=== PATIENT | female | born 1995 | race Caucasian/White ===

== ENCOUNTER → 2021-09-18 | Day surgery (SDC) | payer OTHER | LOC: CSHSDC/OP 13:46 | PROVIDERS: ATTEND Obstetrics & Gynecology | DX: O36.0190 Maternal care for anti-D [Rh] antibodies, unspecified trimester, not applicable or unspecified (principal) ==

== ENCOUNTER 2021-11-05 13:52 | Outpatient (CLI) | payer OTHER | END 2021-11-05 13:53 | disposition home or self-care (01) | LOC: CSHLAB 13:52 | PROVIDERS: ATTEND Obstetrics & Gynecology | DX: Z20.822 Contact with and (suspected) exposure to COVID-19 (principal) | CPT/HCPCS: 87811 ==

== ENCOUNTER 2021-11-07 05:30 | Inpatient (IN) | payer OTHER ==
[~2021-11-07 05:30] MED LIST: Acetaminophen 500 MG TAB PO PRN; Butorphanol Tartrate 1 MG/ML VIAL SLOW IVP PRN; Carboprost 250 MCG/ML AMP IM PRN; Diphenoxylate HCl/Atropine Tablet PO PRN; HYDROcodone/Acetaminophen 5/325 mg Tablet PO PRN; Ibuprofen 800 MG TAB PO PRN; Lidocaine 1% (PF) 30 ML VIAL SC PRN; Methylergonovine 0.2 MG/ML VIAL IM PRN; Misoprostol 200 MCG TAB PR PRN; NS w/ Oxytocin 30 units 500 ML IV SCH; Ondansetron PF 4 MG/2 ML Vial IVP PRN; Promethazine HCl 25 MG/ML VIAL IM PRN; hydrALAZINE 20 MG/ML VIAL SLOW IVP PRN
[2021-11-07] MEDS: NS w/ Oxytocin 30 units 500 ML IV SCH ×2 (07:45→19:45)
[2021-11-07] MEDS: Lactated Ringer's 1,000 ML IV SCH (07:50)
[2021-11-07 07:57] VITALS: BMI 36.2
[2021-11-07] MEDS ORDERED: Bupivacaine 0.25% HCL 30 ML VIAL ONE (08:00)
[2021-11-07] MEDS ORDERED: ePHEDrine Sulfate 50 MG/10 ML VIAL ONE (08:00)
[2021-11-07 08:46] LABS: Hemoglobin 10.6 g/dL (12.0-15.5); Mean Corpuscular HGB CONC 34.2 g/dL (32.0-36.0); Mean Corpuscular Hemoglobin 30.9 pg (27.0-33.0); Mean Corpuscular Volume 90.4 fl (81.6-98.3); Mean Platelet Volume 11.9 fl (7.4-10.4); Platelet Count 214 10x3/uL (150-450); RBC Distribution Width 12.8 % (11.5-14.5); Red Blood Cell (RBC) Count 3.43 10x6/uL (3.90-5.03); White Blood Cell (WBC) Count 9.3 10x3/uL (3.5-10.5)
[2021-11-07 09:21] LABS: HBSAg Index 0.21 S/CO (0-0.99); Hep B Surf Ag Non-Reactive S/CO (NonReactive)
[2021-11-07 09:22] LABS: Syphilis Antibody Nonreactive (Nonreactive); Syphilis Antibody Index 0.05 S/CO (<1.00 Non-Reactive)
[2021-11-07 10:26] LABS: Amphetamine Not Detected (NotDetected); Barbiturates Screen Not Detected (NotDetected); Benzodiazepine Screen Not Detected (NotDetected); Cocaine Metabolite Screen Not Detected (NotDetected); Methadone Not Detected (NotDetected); Methamphetamine Not Detected (NotDetected); Opiate Screen Not Detected (NotDetected); Oxycodone Screen Not Detected (NotDetected); Phencyclidine (PCP) Not Detected (NotDetected); THC/Cannabinoid Screen Detected (NotDetected); Tricyclic Screen Not Detected (NotDetected)
[2021-11-07] MEDS ORDERED: Fentanyl 2 mcg/Bup 0.1% Cadd 100 ML ONE (10:26)
[2021-11-07] MEDS ORDERED: Moisturizing Cream (Eucerin) 113 GM JAR TOP PRN (11:21)
[2021-11-07] MEDS ORDERED: ePHEDrine Sulfate 50 MG/10 ML VIAL SLOW IVP PRN (11:21)
[2021-11-07] MEDS ORDERED: Lactated Ringer's 500 ML IV PRN (11:21)
[2021-11-07] MEDS ORDERED: Acetaminophen 325 MG TAB PO PRN (11:21)
[2021-11-07] MEDS ORDERED: Naloxone HCl 0.4 mg/ml Vial IVP PRN ×2 (11:21)
[2021-11-07] MEDS ORDERED: Promethazine HCl 25 MG/ML VIAL IM PRN (11:21)
[2021-11-07] MEDS ORDERED: Ondansetron PF 4 MG/2 ML Vial IVP PRN (11:21)
[2021-11-07] MEDS ORDERED: diphenhydrAMINE 50 MG/ML VIAL IVP PRN (11:21)
[2021-11-07] MEDS ORDERED: Communication Order-Pharmacy FS SCH (11:30)
[2021-11-07] MEDS ORDERED: Fentanyl 2 mcg/Bupivacaine 0.1% Cassette 100 ML EPIDURAL SCH (11:30)
[2021-11-07] MEDS ORDERED: Azithromycin 500 MG VIAL ONE (17:37)
[2021-11-07] MEDS ORDERED: CEFAZOLIN 2 GM VIAL ONE (17:37)
[2021-11-07] MEDS ORDERED: Midazolam HCl 2 mg/2 ml Vial ONE (17:45)
[2021-11-07] MEDS ORDERED: Misoprostol 200 MCG TAB ONE (17:48)
[2021-11-07 18:37] LABS: RapidComm Collect By CBN
[2021-11-07 18:38] LABS: RapidComm Collect By CBN; pH (Cord, venous) 7.406 (7.250-7.350)
[2021-11-07] MEDS ORDERED: Benzocaine-Menthol 82.5 ML CAN TOP PRN (20:59)
[2021-11-07] MEDS ORDERED: Lanolin Ointment 7 GM TUBE TOP PRN (20:59)
[2021-11-07] MEDS ORDERED: Preparation H Ointment 28 GM TUBE PR PRN (20:59)
[2021-11-07] MEDS ORDERED: Milk Of Magnesia 30 ML UDCUP PO PRN (20:59)
[2021-11-07] MEDS ORDERED: Bisacodyl 10 MG SUPP PR PRN (20:59)
[2021-11-07] MEDS ORDERED: Boostrix 0.5 ML (Tdap) VIAL (>/=7 yrs of age) IM ONE (20:59)
[2021-11-07] MEDS: Docusate 100 MG CAP PO PRN (21:31)
[2021-11-08] MEDS: Lactated Ringer's 1,000 ML IV SCH ×4 (02:08→19:20)
[2021-11-08] MEDS: Ibuprofen 800 MG TAB PO SCH ×3 (05:34→16:59)
[2021-11-08] MEDS: Ferrous Sulfate 325 MG TAB PO SCH ×2 (08:29→17:00)
[2021-11-08] MEDS: Prenatal Vitamin 1 TAB PO SCH (09:39)
[2021-11-08] MEDS: Docusate 100 MG CAP PO PRN (09:39)
[2021-11-08] MEDS ORDERED: Ibuprofen 800 MG TAB PO SCH (22:00)
[2021-11-09] MEDS: Ibuprofen 800 MG TAB PO SCH ×3 (00:01→15:12)
[2021-11-09] MEDS: Lactated Ringer's 1,000 ML IV SCH ×2 (03:24→14:21)
[2021-11-09] MEDS: Ferrous Sulfate 325 MG TAB PO SCH ×2 (07:47→14:22)
[2021-11-09] MEDS: Prenatal Vitamin 1 TAB PO SCH (08:48)
[2021-11-09 08:51] VITALS: BP 109/55; TEMP 97.5
== END 2021-11-09 18:35 | disposition home or self-care (01) | DRG 807 ==
LOC: CSHLD 06:33 → CSHPP 20:29
PROVIDERS: ADMIT Obstetrics & Gynecology; ATTEND Obstetrics & Gynecology
PROC: 10D07Z6 Extraction of Products of Conception, Vacuum, Via Natural or Artificial Opening (ICD-10-PCS; principal; 2021-11-07)
DX: O26.893 Other specified pregnancy related conditions, third trimester (principal); Z37.0 Single live birth; Z3A.39 39 weeks gestation of pregnancy; O99.324 Drug use complicating childbirth; F12.90 Cannabis use, unspecified, uncomplicated; O76 Abnormality in fetal heart rate and rhythm complicating labor and delivery; O69.81X0 Labor and delivery complicated by cord around neck, without compression, not applicable or unspecified; O69.89X0 Labor and delivery complicated by other cord complications, not applicable or unspecified
CPT/HCPCS: 36415; 51702; 80306; 82805; 85027; 86780; 86850; 86900; 86901; 87340; 88307; J2250; J2590; J7120; S0020